=== PATIENT | male | born 1955 ===

== ENCOUNTER 2018-01-04 12:15 | Inpatient (IN) | payer OTHER ==
[~2018-01-04] VITALS: Ht 165.1 cm; Wt 83.9 kg
[2018-01-10] MEDS ORDERED: ALTACE10 MG PO (16:30)
[2018-01-17] MEDS ORDERED: DOCUSATE SODIU100 MG PO (11:13)
[2018-01-17] MEDS ORDERED: CLONAZEPAM1 MG PO (11:14)
[2018-01-17] MEDS ORDERED: PERCOCET 5-3251 EACH PO (11:14)
== END 2018-01-17 13:48 | disposition home or self-care (01) | DRG 454 ==
LOC: PED 01-16 04:20 → O/R 01-16 04:20 → SURG 01-16 07:00 → PED 01-16 10:23 → SURG 01-16 13:15 → PED 01-17 13:48
PROVIDERS: Orthopaedic Surgery Orthopaedic Surgery of the Spine
PROC: 0RG2071 Fusion of 2 or more Cervical Vertebral Joints with Autologous Tissue Substitute, Posterior Approach, Posterior Column, Open Approach (ICD-10-PCS; 2018-01-16)
PROC: 0RT30ZZ Resection of Cervical Vertebral Disc, Open Approach (ICD-10-PCS; 2018-01-16)
PROC: 07DS3ZZ Extraction of Vertebral Bone Marrow, Percutaneous Approach (ICD-10-PCS; 2018-01-16)
PROC: 0RG20A0 Fusion of 2 or more Cervical Vertebral Joints with Interbody Fusion Device, Anterior Approach, Anterior Column, Open Approach (ICD-10-PCS; principal; 2018-01-16 07:00)
DX: M50.01 Cervical disc disorder with myelopathy, high cervical region (principal); M47.12 Other spondylosis with myelopathy, cervical region; I10 Essential (primary) hypertension